=== PATIENT | male | born 1990 | race Caucasian/White ===

== ENCOUNTER 2017-01-17 16:11 | Emergency (ER) | payer OTHER ==
[2017-01-17] MEDS ORDERED: TDAP VACCINE 0.5 ML SUS IM ONE ×2 (16:29→16:32)
[2017-01-17 16:35] VITALS: BP 122/96; PULSE 73; RESP 16; TEMP 97.6; O2SAT 98
[2017-01-17] MEDS ORDERED: AMOXIL/CLAVULANATE 400/5 ML PDR PO ONE (16:45)
[2017-01-17] MEDS ORDERED: AMOXIL/CLAVULANATE 400/5 ML PDR ONE (16:45)
== END 2017-01-17 16:50 | disposition home or self-care (01) | DRG 605 ==
LOC: ED 16:11
DX: S91.332A Puncture wound without foreign body, left foot, initial encounter (principal); W45.0XXA Nail entering through skin, initial encounter
CPT/HCPCS: 90471; 90715; 99282

== ENCOUNTER 2017-12-10 05:56 | Emergency (ER) | payer OTHER ==
[2017-12-10 06:08] VITALS: TEMP 97.4
[2017-12-10] MEDS ORDERED: SODIUM CHLORIDE 0.9% FLUSH 10 ML SOL IV PRN (06:16)
[2017-12-10 06:24] LABS: BASOPHILS % (AUTO) 1 % (0-3); EOSINOPHILS % (AUTO) 1 % (0-9); HEMATOCRIT 47 % (39-53); HEMOGLOBIN 15.4 gm/dl (13.5-17.7); LYMPHOCYTES % (AUTO) 32.74 % (10-50); MEAN CORPUSCULAR HEMOGLOBIN 28.2 pg (27.0-32.0); MEAN CORPUSCULAR HGB CONC 33.1 gm/dl (32.0-36.0); MEAN CORPUSCULAR VOLUME 85 fL (80-100); MONOCYTES % (AUTO) 8.5 % (0-12)
[2017-12-10] MEDS ORDERED: ACETAMINOPHEN 500 MG 500 MG TAB PO ONE (06:27)
[2017-12-10] MEDS ORDERED: ACETAMINOPHEN 500 MG 500 MG TAB ONE (06:28)
[2017-12-10 06:33] LABS: INR 0.9 (0.86-1.12)
[2017-12-10 06:44] LABS: ALBUMIN 3.7 gm/dl (3.4-5.0); ALKALINE PHOSPHATASE 67 IU/L (46-116); ALT 36 IU/L (14-63); AST 24 IU/L (15-37); BILIRUBIN,TOTAL 0.4 mg/dl (0.2-1.0); BLOOD UREA NITROGEN 22 mg/dl (7-18); CALCIUM 8.7 mg/dl (8.5-10.1); CARBON DIOXIDE 27.3 mEq/L (21-32); CHLORIDE 106 mMol/L (98-107); CREATINE KINASE 131 U/L (39-308); CREATININE 1.01 mg/dl (0.80-1.30); GLOM FILT RATE 88 mL/min (>60); GLUCOSE 114 mg/dl (74-106); POTASSIUM 3.8 mMol/L (3.5-5.1); SODIUM 140 mMol/L (136-145); TOTAL PROTEIN 7.5 gm/dl (6.4-8.2); TROP I < 0.017 ng/ml (0.000-0.056)
[2017-12-10] MEDS ORDERED: LIDOCAINE HCL 2% (VISCOUS) 20 ML SOL MT ONE (06:48)
[2017-12-10] MEDS ORDERED: ALUMINUM/MAGNESIUM 30 ML SUS PO ONE (06:48)
[2017-12-10] MEDS ORDERED: ALUMINUM/MAGNESIUM 30 ML SUS ONE (06:49)
[2017-12-10] MEDS ORDERED: LIDOCAINE HCL 2% (VISCOUS) 20 ML SOL ONE (06:49)
[2017-12-10 08:39] VITALS: PULSE 61
[2017-12-10 08:40] VITALS: BP 138/94; RESP 10; O2SAT 95
== END 2017-12-10 08:30 | disposition home or self-care (01) | DRG 392 ==
LOC: ED 05:56
DX: K21.9 Gastro-esophageal reflux disease without esophagitis (principal); R07.89 Other chest pain; K80.80 Other cholelithiasis without obstruction
CPT/HCPCS: 36415; 71045; 80053; 82550; 84484; 85025; 85610; 93005; 99284; 99285; A9270-GY